=== PATIENT | female | born 1965 | race Caucasian/White ===

== ENCOUNTER 2020-07-12 05:30 | Emergency (ER) | payer MEDICAID ==
[~2020-07-12] VITALS: Ht 165.1 cm; Wt 79.7 kg
[2020-07-12 05:33] VITALS: BP 131/108
[2020-07-12] MEDS ORDERED: ondansetron 4mg rapidly disintigrating tab PO ONE (06:20)
[2020-07-12] MEDS ORDERED: mag hydrox/Alum hydrox/simeth 30ml oral suspension PO ONE (06:20)
[2020-07-12] MEDS ORDERED: OMEP20TA23 PO (06:24)
[2020-07-12] MEDS ORDERED: ONDA4TAB6 PO (06:24)
== END 2020-07-12 07:05 | disposition home or self-care (01) ==
LOC: ER 05:31
DX: R11.10 Vomiting, unspecified (principal); F41.9 Anxiety disorder, unspecified; R12 Heartburn; K21.9 Gastro-esophageal reflux disease without esophagitis; E11.9 Type 2 diabetes mellitus without complications; F17.200 Nicotine dependence, unspecified, uncomplicated; F12.90 Cannabis use, unspecified, uncomplicated; F15.90 Other stimulant use, unspecified, uncomplicated; Z59.0 Homelessness; Z88.8 Allergy status to other drugs, medicaments and biological substances; Z79.899 Other long term (current) drug therapy
CPT/HCPCS: 99283

== ENCOUNTER 2022-01-02 12:32 | Emergency (ER) | payer MEDICAID ==
[~2022-01-02] VITALS: Ht 165.1 cm; Wt 72.7 kg
[~2022-01-02 12:32] MED LIST: OMEP20TA23 PO; ONDA4TAB6 PO
[2022-01-02 13:05] VITALS: BP 172/90
== END 2022-01-02 15:25 | disposition home or self-care (01) ==
LOC: ER 12:33
DX: R53.1 Weakness (principal); E11.9 Type 2 diabetes mellitus without complications; K21.9 Gastro-esophageal reflux disease without esophagitis; F12.10 Cannabis abuse, uncomplicated; F15.10 Other stimulant abuse, uncomplicated; Z59.00 Homelessness unspecified; Z56.0 Unemployment, unspecified; Z88.6 Allergy status to analgesic agent; Z79.899 Other long term (current) drug therapy
CPT/HCPCS: 99283